=== PATIENT | female | born 1975 | race Caucasian/White ===

== ENCOUNTER 2019-01-22 12:39 | Emergency (ER) | payer MEDICAID ==
[~2019-01-22] VITALS: Ht 165.1 cm; Wt 116.6 kg
[2019-01-22 13:12] VITALS: Ht 165.1 cm; Wt 116.6 kg
[2019-01-22 15:15] LABS: BASOPHIL % 0.4 % (0-2); PLATELET COUNT 306 x10^3mcL (130-400)
[2019-01-22 15:16] LABS: UA SPECIFIC GRAVITY 1.025 (1.005-1.035); microscopic required? YES; urine erythrocyte 2+ (NEGATIVE)
[2019-01-22 15:17] LABS: RED CELL DISTRIBUTION WIDTH 14.9 % (11.5-14.5)
[2019-01-22 15:22] LABS: CALCIUM 9.5 mg/dL (8.5-10.1); CARBON DIOXIDE 24.8 mmol/L (21-32); CHLORIDE SERUM 104 mmol/L (98-107); CREATININE SERUM 0.7 mg/dL (0.6-1.0); GFR1 > 60 mL/min; GLUCOSE SERUM 108 mg/dL (74-106); POTASSIUM SERUM 3.6 mmol/L (3.5-5.1); SODIUM SERUM 140 mmol/L (136-145)
[2019-01-22 15:28] LABS: ALBUMIN 3.6 g/dL (3.4-5.0); ALKALINE PHOSPHATASE 94 U/L (46-116); ALT/SGPT 21 U/L (14-59); AST/SGOT 13 U/L (15-37); BILIRUBIN TOTAL 0.31 mg/dL (0.20-1.00); LIPASE 87 IU/L (73-393); TOTAL PROTEIN, SERUM 7.7 g/dL (6.4-8.2)
[2019-01-22 18:12] VITALS: BP 116/71
== END 2019-01-22 18:12 | disposition home or self-care (01) ==
LOC: ED 12:39
PROVIDERS: Emergency Medicine
DX: R10.13 Epigastric pain (principal); R11.10 Vomiting, unspecified; R19.7 Diarrhea, unspecified; N83.209 Unspecified ovarian cyst, unspecified side; N28.1 Cyst of kidney, acquired; N39.0 Urinary tract infection, site not specified; E66.9 Obesity, unspecified; Z68.41 Body mass index [BMI] 40.0-44.9, adult; Z88.0 Allergy status to penicillin; Z90.49 Acquired absence of other specified parts of digestive tract
CPT/HCPCS: 87046; 87046-59; J1885; J2405; J7030

== ENCOUNTER 2019-07-14 11:44 | Emergency (ER) | payer SELFPAY ==
[~2019-07-14] VITALS: Ht 165.1 cm; Wt 114.8 kg
[2019-07-14 12:08] VITALS: Ht 165.1 cm; Wt 114.8 kg
[2019-07-14 14:02] VITALS: BP 145/85
== END 2019-07-14 14:02 | disposition home or self-care (01) ==
LOC: ED 11:44
DX: N39.0 Urinary tract infection, site not specified (principal); I10 Essential (primary) hypertension; E03.9 Hypothyroidism, unspecified; Z90.49 Acquired absence of other specified parts of digestive tract; Z88.0 Allergy status to penicillin